=== PATIENT | female | born 1945 | race Caucasian/White ===

== ENCOUNTER 2018-12-28 07:12 | Emergency (ER) | payer MEDICARE ==
[~2018-12-28] VITALS: Ht 170.2 cm; Wt 80.0 kg
[2018-12-28] MEDS ORDERED: normal saline 1000ML IV soln IVB ONE (07:15)
[2018-12-28 07:52] LABS: BASOPHILS # (AUTO) 0.1 X10'3 (0-0.2); BASOPHILS % (AUTO) 0.5 % (0-1); EOSINOPHILS % (AUTO) 0.2 % (0-6); HEMATOCRIT 38.4 % (35.0-45.0); HEMOGLOBIN 12.8 g/dl (12.0-16.0); LYMPHOCYTES # (AUTO) 0.6 X10'3 (1.1-4.8); LYMPHOCYTES % (AUTO) 4.9 % (21-51); MEAN CORPUSCULAR HEMOGLOBIN 27.7 PG (27.0-31.0); MEAN CORPUSCULAR HGB CONC 33.4 g/dL (33.0-36.5); MEAN CORPUSCULAR VOLUME 82.8 FL (78-98); MEAN PLATELET VOLUME 8.7 FL (7.4-10.4); MONOCYTES # (AUTO) 0.5 X10'3 (0-0.9); MONOCYTES % (AUTO) 4.4 % (2-12); NEUTROPHILS # (AUTO) 10.5 X10'3 (1.8-7.7); PLATELET COUNT 199 X10'3 (140-440); RED BLOOD COUNT 4.64 X10'6 (4.20-5.60); RED CELL DISTRIBUTION WIDTH 13.7 % (11.5-14.5); WHITE BLOOD COUNT 11.6 X10'3 (4.5-11.0)
[2018-12-28 08:05] LABS: PARTIAL THROMBOPLASTIN TIME 27 SECONDS (22-32)
[2018-12-28 08:07] LABS: ALANINE AMINOTRANSFERASE 19 U/L (12-78); ALBUMIN 3.8 G/DL (3.4-5.0); ALBUMIN/GLOBULIN RATIO 0.9 (1.1-1.5); ALKALINE PHOSPHATASE 94 IU/L (46-116); ANION GAP 11 (8-16); ASPARTATE AMINO TRANSFERASE 21 U/L (10-37); BILIRUBIN,TOTAL 0.7 MG/DL (0.1-1.0); BLOOD UREA NITROGEN 34 MG/DL (7-18); CALCIUM 9.9 MG/DL (8.5-10.1); CHLORIDE 104 MMOL/L (99-107); CREATINE KINASE 253 U/L (26-192); CREATININE 1.48 MG/DL (0.40-0.90); ETHANOL < 0.010 GM/DL (0.0-0.010); GLUCOSE 213 MG/DL (70-104); POTASSIUM 4.2 MMOL/L (3.5-5.1); SODIUM 136 MMOL/L (135-145); TOTAL CARBON DIOXIDE 21.4 MMOL/L (24-32); TOTAL PROTEIN 8.1 G/DL (6.4-8.2); eGFR 35 ML/MIN
[2018-12-28] MEDS ORDERED: normal saline 1000ml 1,000 ML IV ONE (08:25)
--- NOTE | 2018-12-28 08:50 | NUR ---
PT TAKEN TO CT
[2018-12-28 08:55] LABS: CLARITY,URINE CLOUDY (Clear); COLOR,URINE YELLOW (Yellow); GLUCOSE, URINE NEGATIVE (Neg); KETONES,URINE NEGATIVE (Neg); LEUKOCYTE ESTERASE ,URINE NEGATIVE (Neg); NITRITES, URINE NEGATIVE (Neg); OCCULT BLOOD,URINE SMALL (Neg); PROTEIN,URINE TRACE mg/dl (Neg); UROBILINOGEN,URINE 0.2 E.U/dL (0.2-1.0)
[2018-12-28 08:57] LABS: UA COLLECTION TYPE CLN CATCH MIDSTREAM
[2018-12-28 09:01] LABS: HYALINE CASTS >30 /LPF (NEGATIVE); SQUAMOUS EPITHELIAL CELL,UR MODERATE /LPF (FEW)
[2018-12-28 09:03] LABS: WBC CLUMPS,URINE FEW /HPF (NEGATIVE)
[2018-12-28 09:04] LABS: BACTERIA,URINE 2+ /HPF (Neg); MUCUS STRANDS FEW /LPF (Neg); RBC,URINE 0-2 /HPF (0-2); TRANSITIONAL EPI CELLS,URINE FEW /HPF
[2018-12-28] MEDS ORDERED: CefTRIAXone 2gm/D5W 50ml 50 ML IV ONE (09:15)
[2018-12-28 10:09] VITALS: BP 130/55
[2018-12-28] MEDS ORDERED: CIPR-230 PO (11:09)
== END 2018-12-28 11:15 | disposition home or self-care (01) ==
LOC: ER 07:14
DX: E86.0 Dehydration (principal); N39.0 Urinary tract infection, site not specified; F03.90 Unspecified dementia, unspecified severity, without behavioral disturbance, psychotic disturbance, mood disturbance, and anxiety; Z88.0 Allergy status to penicillin; Z79.2 Long term (current) use of antibiotics; Z98.890 Other specified postprocedural states; W18.39XA Other fall on same level, initial encounter; Y93.89 Activity, other specified; Y92.89 Other specified places as the place of occurrence of the external cause; Y99.8 Other external cause status
CPT/HCPCS: 36415; 70450; 71045; 72125; 80053; 80320; 81001; 82140; 82550; 82948; 83880; 85025; 85610; 85730; 87088; 93005; 96361; 96365; 99284; J0696; J7030

== ENCOUNTER 2019-05-08 09:28 | Inpatient (IN) | payer MEDICARE, OTHER ==
[~2019-05-08] VITALS: Ht 167.6 cm; Wt 62.0 kg
[2019-05-08] MEDS ORDERED: pantoprazole 40 MG vial IV ONE (10:10)
[2019-05-08] MEDS ORDERED: normal saline 1000ML IV soln IVB ONE ×2 (10:10)
[2019-05-08] MEDS ORDERED: ondansetron/PF 4mg/2ml inj IV ONE (10:10)
[2019-05-08 10:32] LABS: BASOPHILS % (AUTO) 0.3 % (0-1); EOSINOPHILS % (AUTO) 0.1 % (0-6); HEMATOCRIT 40.9 % (35.0-45.0); HEMOGLOBIN 14.6 g/dl (12.0-16.0); LYMPHOCYTES # (AUTO) 0.7 X10'3 (1.1-4.8); LYMPHOCYTES % (AUTO) 7.4 % (21-51); MEAN CORPUSCULAR HGB CONC 35.7 g/dL (33.0-36.5); MEAN CORPUSCULAR VOLUME 81.1 FL (78-98); MEAN PLATELET VOLUME 8.9 FL (7.4-10.4); MONOCYTES # (AUTO) 0.6 X10'3 (0-0.9); MONOCYTES % (AUTO) 5.8 % (2-12); NEUTROPHILS # (AUTO) 8.6 X10'3 (1.8-7.7); NEUTROPHILS % (AUTO) 86.4 % (42-75); PLATELET COUNT 255 X10'3 (140-440); RED BLOOD COUNT 5.04 X10'6 (4.20-5.60); RED CELL DISTRIBUTION WIDTH 13.5 % (11.5-14.5); WHITE BLOOD COUNT 9.9 X10'3 (4.5-11.0)
[2019-05-08 10:46] LABS: ALANINE AMINOTRANSFERASE 25 U/L (12-78); ALBUMIN 4.4 G/DL (3.4-5.0); ALBUMIN/GLOBULIN RATIO 0.8 (1.1-1.5); ALKALINE PHOSPHATASE 97 IU/L (46-116); ANION GAP 18 (8-16); ASPARTATE AMINO TRANSFERASE 22 U/L (10-37); BILIRUBIN,TOTAL 0.6 MG/DL (0.1-1.0); BLOOD UREA NITROGEN 94 MG/DL (7-18); BUN/CREATININE RATIO 19.7 (6.6-38.0); CALCIUM 9.5 MG/DL (8.5-10.1); CHLORIDE 87 MMOL/L (99-107); CREATININE 4.76 MG/DL (0.40-0.90); GLUCOSE 346 MG/DL (70-104); POTASSIUM 4.7 MMOL/L (3.5-5.1); SODIUM 122 MMOL/L (135-145); TOTAL CARBON DIOXIDE 17.3 MMOL/L (24-32); TOTAL PROTEIN 9.6 G/DL (6.4-8.2); eGFR 9 ML/MIN
[2019-05-08 10:53] LABS: LIPASE 5176 U/L (73-393)
[2019-05-08 12:02] LABS: CLARITY,URINE CLOUDY (Clear); COLOR,URINE STRAW (Yellow); GLUCOSE, URINE NEGATIVE (Neg); KETONES,URINE NEGATIVE (Neg); LEUKOCYTE ESTERASE ,URINE NEGATIVE (Neg); NITRITES, URINE NEGATIVE (Neg); OCCULT BLOOD,URINE MODERATE (Neg); PROTEIN,URINE TRACE mg/dl (Neg); UROBILINOGEN,URINE 0.2 E.U/dL (0.2-1.0)
[2019-05-08 12:04] LABS: UA COLLECTION TYPE CLN CATCH MIDSTREAM
[2019-05-08 12:08] LABS: HYALINE CASTS >30 /LPF (NEGATIVE)
[2019-05-08 12:09] LABS: COARSE GRANULAR CAST 0-3 /LPF (NEGATIVE)
[2019-05-08 12:11] LABS: MUCUS STRANDS FEW /LPF (Neg); SQUAMOUS EPITHELIAL CELL,UR MANY /LPF (FEW); TRANSITIONAL EPI CELLS,URINE FEW /HPF
[2019-05-08 12:12] LABS: RBC,URINE 0-2 /HPF (0-2); WBC,URINE 0-4 /HPF (0-4)
[2019-05-08 12:13] LABS: AMORPHOUS URATES 2+; BACTERIA,URINE 2+ /HPF (Neg); CAL OXALATE CRYSTALS 1+ /HPF (NEGATIVE); RENAL CELLS, URINE FEW /HPF
[2019-05-08] MEDS ORDERED: mag hydrox/Alum hydrox/simeth 30ml oral suspension PO PRN (12:25)
[2019-05-08] MEDS ORDERED: magnesium hydroxide 30ml (MOM) UD suspension PO PRN (12:25)
[2019-05-08] MEDS ORDERED: bisacodyl 10mg suppository rectal RC PRN (12:25)
[2019-05-08] MEDS ORDERED: morphine 2 MG/ML inj. syringe IV PRN ×2 (12:25)
[2019-05-08] MEDS ORDERED: HYDROcodone/acetaminophen 5mg/325mg tablet PO PRN (12:25)
[2019-05-08] MEDS ORDERED: ondansetron/PF 4mg/2ml inj IV PRN (12:25)
[2019-05-08] MEDS ORDERED: dextrose 5%-normal saline 1,000 ML IV SCH (12:25)
[2019-05-08] MEDS ORDERED: metoclopramide 5 mg/ml inj IV PRN (12:25)
[2019-05-08] MEDS ORDERED: diphenhydrAMINE 25mg capsule PO PRN (12:25)
[2019-05-08] MEDS ORDERED: potassium Cl 20 mEq SR tablet PO PRN (12:25)
[2019-05-08] MEDS ORDERED: diphenhydrAMINE 50 mg/ml inj IV PRN (12:25)
[2019-05-08] MEDS ORDERED: HYDROcodone/acetaminophen 10/325mg tab PO PRN (12:25)
[2019-05-08] MEDS ORDERED: acetaminophen 650mg rectal suppository RC PRN (12:25)
[2019-05-08] MEDS ORDERED: potassium CL 10mEq/100ml bag 100 ML IV PRN ×2 (12:25)
[2019-05-08] MEDS ORDERED: magnesium 2GM in 50ml NS 50 ML IV PRN (12:25)
[2019-05-08] MEDS ORDERED: acetaminophen 325mg tablet PO PRN ×2 (12:25)
[2019-05-08] MEDS ORDERED: magnesium Cl slow-release 64mg tablet PO PRN (12:25)
[2019-05-08] MEDS ORDERED: magnesium 4gm in 100ml NS 100 ML IV PRN (12:25)
[2019-05-08 12:44] LABS: HEMOGLOBIN A1C 7.7 % (4.5-6.2)
[2019-05-08] MEDS ORDERED: ASPI-611 PO (12:51)
[2019-05-08] MEDS ORDERED: normal saline 1000ml 1,000 ML IV SCH (14:30)
[2019-05-08] MEDS ORDERED: sodium bicarbonate (8.4%) inj. 75 MEQ in dextrose 5% water 500ml 500 ML IV SCH (15:00)
--- NOTE | 2019-05-08 15:40 | NUR ---
Report received from ED RNAlesha.
[2019-05-08 16:00] VITALS: BP 137/62
--- NOTE | 2019-05-08 16:00 | NUR ---
Pt arrived to room 340B from ED
[2019-05-08] MEDS: sodium bicarbonate (8.4%) inj. 75 MEQ in dextrose 5% water 500ml 500 ML IV SCH ×3 (16:33→22:04)
--- NOTE | 2019-05-08 18:30 | NUR ---
Problems reprioritized. Patient report given, questions answered & plan of care reviewed with Lilly Carr RN.
--- NOTE | 2019-05-08 18:35 | NUR ---
Patient in room [facility] 340. I have received report from EMIL REAVES and had the opportunity to ask questions and assume patient care.
[2019-05-08] MEDS: heparin, porcine 5000 units/ml vial SQ SCH (19:49)
[2019-05-08 20:00] VITALS: BP 143/68
[2019-05-08] MEDS: K and/or MAG REPLACEMENT MC SCH (20:00)
[2019-05-08] MEDS ORDERED: MESSAGE TO PHARMACY PO ONE (20:20)
[2019-05-08] MEDS ORDERED: dextrose 50%-water 50ml dispensing syringe IV PRN ×2 (20:20)
[2019-05-08] MEDS ORDERED: glucagon, human recombinant 1mg kit SUBCUT PRN (20:20)
[2019-05-08] MEDS ORDERED: dextrose ORAL solution 15 GM/59 ML bottle PO PRN ×2 (20:20)
[2019-05-08] MEDS: insulin Lispro (HumaLOG) vial - multi-dose SQ SCH (22:12)
[2019-05-08] MEDS: insulin glargine (Lantus) pen - multi-dose SQ SCH (22:13)
[2019-05-09] VITALS: BP 129/66
[2019-05-09] MEDS: insulin Lispro (HumaLOG) vial - multi-dose SQ SCH ×3 (03:43→13:44)
[2019-05-09 04:49] LABS: BASOPHILS % (AUTO) 0.2 % (0-1); EOSINOPHILS % (AUTO) 0.3 % (0-6); HEMATOCRIT 34.5 % (35.0-45.0); HEMOGLOBIN 12.1 g/dl (12.0-16.0); LYMPHOCYTES # (AUTO) 1.2 X10'3 (1.1-4.8); LYMPHOCYTES % (AUTO) 15.9 % (21-51); MEAN CORPUSCULAR HEMOGLOBIN 28.2 PG (27.0-31.0); MEAN CORPUSCULAR HGB CONC 35.1 g/dL (33.0-36.5); MEAN CORPUSCULAR VOLUME 80.5 FL (78-98); MONOCYTES # (AUTO) 0.7 X10'3 (0-0.9); MONOCYTES % (AUTO) 9.6 % (2-12); NEUTROPHILS # (AUTO) 5.6 X10'3 (1.8-7.7); PLATELET COUNT 210 X10'3 (140-440); RED BLOOD COUNT 4.29 X10'6 (4.20-5.60); RED CELL DISTRIBUTION WIDTH 13.5 % (11.5-14.5); WHITE BLOOD COUNT 7.5 X10'3 (4.5-11.0)
[2019-05-09] MEDS: sodium bicarbonate (8.4%) inj. 75 MEQ in dextrose 5% water 500ml 500 ML IV SCH ×2 (04:54→09:57)
[2019-05-09 04:55] LABS: ALANINE AMINOTRANSFERASE 11 U/L (12-78); ALBUMIN 3.5 G/DL (3.4-5.0); ALBUMIN/GLOBULIN RATIO 0.9 (1.1-1.5); ALKALINE PHOSPHATASE 71 IU/L (46-116); ANION GAP 12 (8-16); ASPARTATE AMINO TRANSFERASE 18 U/L (10-37); BILIRUBIN,TOTAL 0.7 MG/DL (0.1-1.0); BLOOD UREA NITROGEN 85 MG/DL (7-18); BUN/CREATININE RATIO 26.3 (6.6-38.0); CALCIUM 8.8 MG/DL (8.5-10.1); CHLORIDE 95 MMOL/L (99-107); CHOL/HDL RATIO 3.9 (0.00-4.99); CHOLESTEROL 114 MG/DL (0-200); CREATININE 3.23 MG/DL (0.40-0.90); GLUCOSE 236 MG/DL (70-104); HDL CHOLESTEROL 29 MG/DL (35-60); LDL CHOLESTEROL 73 MG/DL (50-100); PHOSPHORUS 5.1 MG/DL (2.3-4.5); POTASSIUM 3.2 MMOL/L (3.5-5.1); SODIUM 131 MMOL/L (135-145); TOTAL CARBON DIOXIDE 24.4 MMOL/L (24-32); TOTAL PROTEIN 7.4 G/DL (6.4-8.2); TRIGLYCERIDES 106 MG/DL (20-135); TROPONIN I 0.05 NG/ML (0.0-0.05); eGFR 14 ML/MIN
[2019-05-09 05:15] LABS: LIPASE 6040 U/L (73-393)
--- NOTE | 2019-05-09 06:05 | NUR ---
Patient in room [facility]. I have received report from Lilly Carr RN and had the opportunity to ask questions and assume patient care.
[2019-05-09 06:30] VITALS: BP 132/58
--- NOTE | 2019-05-09 06:30 | NUR ---
Problems reprioritized. Patient report given, questions answered & plan of care reviewed with EMIL RN.
[2019-05-09] MEDS: K and/or MAG REPLACEMENT MC SCH ×2 (06:39→19:25)
[2019-05-09] MEDS: heparin, porcine 5000 units/ml vial SQ SCH ×2 (07:23→19:56)
[2019-05-09] MEDS: pantoprazole 40 MG vial IV SCH (07:23)
[2019-05-09] MEDS: aspirin 81mg tablet.DR PO SCH (07:24)
[2019-05-09] MEDS: potassium Cl 20 mEq SR tablet PO PRN ×3 (07:24→16:48)
--- NOTE | 2019-05-09 10:58 | NUR ---
Student Medication Administration: For this medication-pass time frame, all medication were reviewed, dispensed, administered and documented per hospital policy by jayashree Landeros.
--- NOTE | 2019-05-09 10:58 | NUR ---
Student documentation: I have reviewed and agree with all interventions, assessments performed and documented by Leti, nursing admin.
[2019-05-09 11:00] VITALS: BP 123/60
[2019-05-09] MEDS: normal saline 1000ml 1,000 ML IV SCH ×2 (12:19→21:00)
--- NOTE | 2019-05-09 12:48 | NUR ---
Patient in room [facility] 340. I have received report from Rupa REAVES and had the opportunity to ask questions and assume patient care.
--- NOTE | 2019-05-09 18:17 | NUR ---
DM consult: Pt admitted with severe pancreatitis with abdominal pain with vomiting over the past 4 days. Pt has very poor PO intake for 2-3 days CYANIDE [employer] per MD and pt currently NPO. Pt lipase continues to be trend upward, currently documented at 6040. RD visited pt and daughter at bedside and pt states abdominal pain has dissipated and her appetite increased. 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 Pt declined verbal DM review. Pt is requesting food and states is hungry however pt is still NPO. LBM 05/09 with 200ml colostomy output. Will monitor for diet advancement. Recommendation: 1. diet advancement as medically indicated to carb controlled, low fat diet 2. bowel care as needed 3. weight per rx Addendum: 05/09/19 at 1818 by Wing Evelyn NELSON Amended: Links added. Addendum: 05/09/19 at [address] LESLIE Avendano
--- NOTE | 2019-05-09 18:35 | NUR ---
Received report from JEAN PAUL Goode. Patient in room [facility] 340B, and had the opportunity to ask questions and assume patient care.
--- NOTE | 2019-05-09 18:40 | NUR ---
Problems reprioritized. Patient report given, questions answered & plan of care reviewed with JEAN PAUL Estrada.
[2019-05-09] MEDS: insulin glargine (Lantus) pen - multi-dose SQ SCH (19:55)
[2019-05-09 20:00] VITALS: BP 115/41
[2019-05-10] VITALS: BP 115/51
[2019-05-10] MEDS: normal saline 1000ml 1,000 ML IV SCH ×3 (01:16→21:24)
[2019-05-10 04:34] LABS: BASOPHILS % (AUTO) 0.7 % (0-1); EOSINOPHILS % (AUTO) 0.7 % (0-6); HEMATOCRIT 30.2 % (35.0-45.0); HEMOGLOBIN 10.7 g/dl (12.0-16.0); LYMPHOCYTES # (AUTO) 1.2 X10'3 (1.1-4.8); LYMPHOCYTES % (AUTO) 24.4 % (21-51); MEAN CORPUSCULAR HEMOGLOBIN 28.9 PG (27.0-31.0); MEAN CORPUSCULAR HGB CONC 35.6 g/dL (33.0-36.5); MEAN CORPUSCULAR VOLUME 81.3 FL (78-98); MEAN PLATELET VOLUME 8.7 FL (7.4-10.4); MONOCYTES # (AUTO) 0.4 X10'3 (0-0.9); MONOCYTES % (AUTO) 8.9 % (2-12); NEUTROPHILS # (AUTO) 3.2 X10'3 (1.8-7.7); NEUTROPHILS % (AUTO) 65.3 % (42-75); PLATELET COUNT 165 X10'3 (140-440); RED BLOOD COUNT 3.71 X10'6 (4.20-5.60); RED CELL DISTRIBUTION WIDTH 13.4 % (11.5-14.5); WHITE BLOOD COUNT 4.9 X10'3 (4.5-11.0)
[2019-05-10 05:11] LABS: ALANINE AMINOTRANSFERASE 16 U/L (12-78); ALBUMIN 3.1 G/DL (3.4-5.0); ALBUMIN/GLOBULIN RATIO 0.9 (1.1-1.5); ALKALINE PHOSPHATASE 61 IU/L (46-116); ANION GAP 9 (8-16); ASPARTATE AMINO TRANSFERASE 19 U/L (10-37); BILIRUBIN,TOTAL 0.5 MG/DL (0.1-1.0); BLOOD UREA NITROGEN 61 MG/DL (7-18); BUN/CREATININE RATIO 26.9 (6.6-38.0); CALCIUM 8.6 MG/DL (8.5-10.1); CHLORIDE 103 MMOL/L (99-107); CREATININE 2.27 MG/DL (0.40-0.90); GLUCOSE 136 MG/DL (70-104); LIPASE 2121 U/L (73-393); PHOSPHORUS 3.4 MG/DL (2.3-4.5); POTASSIUM 3.6 MMOL/L (3.5-5.1); SODIUM 138 MMOL/L (135-145); TOTAL CARBON DIOXIDE 26.3 MMOL/L (24-32); TOTAL PROTEIN 6.7 G/DL (6.4-8.2); eGFR 21 ML/MIN
--- NOTE | 2019-05-10 06:10 | NUR ---
Problems reprioritized. Patient report given, questions answered & plan of care reviewed with JEAN PAUL Stover.
[2019-05-10 07:20] VITALS: BP 125/46
[2019-05-10] MEDS: K and/or MAG REPLACEMENT MC SCH ×2 (08:00→19:41)
[2019-05-10] MEDS: pantoprazole 40 MG vial IV SCH (08:46)
[2019-05-10] MEDS: aspirin 81mg tablet.DR PO SCH (08:46)
[2019-05-10] MEDS: heparin, porcine 5000 units/ml vial SQ SCH ×2 (08:47→19:40)
--- NOTE | 2019-05-10 11:57 | NUR ---
MD Giordano made aware of yeasty red rash in navel. Nystatin powder BID ordered for affected area. MD aware of slightly elevated troponins. No new orders. States that he will most likely be obtaining a surgical consult with on-call surgeon - Alix for gallbladder removal r/t gallstones.
[2019-05-10 12:00] VITALS: BP 120/42
[2019-05-10] MEDS ORDERED: nystatin 15 GM powder TP ONE (12:30)
--- NOTE | 2019-05-10 18:19 | NUR ---
Problems reprioritized. Patient report given, questions answered & plan of care reviewed with Natalie REAVES.
[2019-05-10] MEDS: nystatin 15 GM powder TP SCH (19:41)
[2019-05-10 20:00] VITALS: BP 128/45
[2019-05-10] MEDS: insulin glargine (Lantus) pen - multi-dose SQ SCH (21:28)
[2019-05-11] VITALS (17 sets, daily range): BP systolic 118–173; BP diastolic 35–77
[2019-05-11 05:58] LABS: BASOPHILS % (AUTO) 0.5 % (0-1); EOSINOPHILS # (AUTO) 0.1 X10'3 (0-0.9); EOSINOPHILS % (AUTO) 2.1 % (0-6); HEMATOCRIT 28.6 % (35.0-45.0); HEMOGLOBIN 10.1 g/dl (12.0-16.0); LYMPHOCYTES # (AUTO) 1.1 X10'3 (1.1-4.8); LYMPHOCYTES % (AUTO) 25.4 % (21-51); MEAN CORPUSCULAR HEMOGLOBIN 28.6 PG (27.0-31.0); MEAN CORPUSCULAR HGB CONC 35.4 g/dL (33.0-36.5); MEAN PLATELET VOLUME 8.8 FL (7.4-10.4); MONOCYTES # (AUTO) 0.4 X10'3 (0-0.9); MONOCYTES % (AUTO) 9.3 % (2-12); NEUTROPHILS # (AUTO) 2.7 X10'3 (1.8-7.7); NEUTROPHILS % (AUTO) 62.7 % (42-75); PLATELET COUNT 153 X10'3 (140-440); RED BLOOD COUNT 3.54 X10'6 (4.20-5.60); RED CELL DISTRIBUTION WIDTH 13.7 % (11.5-14.5); WHITE BLOOD COUNT 4.3 X10'3 (4.5-11.0)
[2019-05-11 06:27] LABS: ALANINE AMINOTRANSFERASE 23 U/L (12-78); ALBUMIN 2.9 G/DL (3.4-5.0); ALBUMIN/GLOBULIN RATIO 0.9 (1.1-1.5); ALKALINE PHOSPHATASE 52 IU/L (46-116); ANION GAP 8 (8-16); ASPARTATE AMINO TRANSFERASE 24 U/L (10-37); BILIRUBIN,TOTAL 0.6 MG/DL (0.1-1.0); BLOOD UREA NITROGEN 43 MG/DL (7-18); BUN/CREATININE RATIO 25.4 (6.6-38.0); CALCIUM 8.3 MG/DL (8.5-10.1); CHLORIDE 108 MMOL/L (99-107); CREATININE 1.69 MG/DL (0.40-0.90); GLUCOSE 74 MG/DL (70-104); LIPASE 753 U/L (73-393); MAGNESIUM 1.8 MG/DL (1.5-2.4); PHOSPHORUS 2.6 MG/DL (2.3-4.5); POTASSIUM 3.5 MMOL/L (3.5-5.1); SODIUM 141 MMOL/L (135-145); TOTAL CARBON DIOXIDE 24.8 MMOL/L (24-32); TOTAL PROTEIN 6.2 G/DL (6.4-8.2); eGFR 30 ML/MIN
--- NOTE | 2019-05-11 06:33 | NUR ---
Problems reprioritized. Patient report given, questions answered & plan of care reviewed with JEAN PAUL Espino.
--- NOTE | 2019-05-11 06:34 | NUR ---
Patient in room [facility]. I have received report from JEAN PAUL Estrada and had the opportunity to ask questions and assume patient care.
[2019-05-11] MEDS: K and/or MAG REPLACEMENT MC SCH ×2 (06:57→20:00)
[2019-05-11] MEDS: heparin, porcine 5000 units/ml vial SQ SCH ×2 (07:03→19:59)
[2019-05-11] MEDS: pantoprazole 40 MG vial IV SCH (07:03)
[2019-05-11] MEDS: normal saline 1000ml 1,000 ML IV SCH (07:04)
[2019-05-11] MEDS: aspirin 81mg tablet.DR PO SCH (07:04)
[2019-05-11] MEDS: nystatin 15 GM powder TP SCH ×2 (07:04→19:58)
[2019-05-11] MEDS: dextrose 5%-normal saline 1,000 ML IV SCH (12:08)
[2019-05-11] MEDS ORDERED: ringers solution, lacted 1,000 ML IV SCH ×2 (13:19→16:14)
[2019-05-11] MEDS ORDERED: ringers solution, lacted 1,000 ML IV ONE (13:19)
[2019-05-11] MEDS ORDERED: fentaNYL/PF 50MCG/1 ML 2ML syringe IV PRN ×2 (13:20)
[2019-05-11] MEDS ORDERED: morphine 4 MG/ML inj SYRINge IV PRN ×4 (13:20→16:15)
[2019-05-11] MEDS ORDERED: ondansetron/PF 4mg/2ml inj IV PRN ×2 (13:20→16:15)
[2019-05-11] MEDS ORDERED: hydrALAZINE 20mg/ml inj. IV PRN (13:20)
[2019-05-11] MEDS ORDERED: labetalol 20mg/4ml (5mg/ml) syringe IV PRN (13:20)
[2019-05-11] MEDS: levoFLOXACIN-Levaquin 750MG/D5 150 ML IV SCH (13:47)
[2019-05-11] MEDS ORDERED: BUPIVAcaine/PF 2.5 mg/ml (0.25%) 30ml vial ONE (14:53)
[2019-05-11] MEDS ORDERED: ceFAZolin 1000mg inj ONE (14:53)
--- NOTE | 2019-05-11 15:25 | NUR ---
Patient to OR via bed with x2 staff. Report called to recovery. Patient in no apparent distress at this time.
[2019-05-11] MEDS ORDERED: sevoflurane 250ml liquid IH ONE (15:44)
[2019-05-11] MEDS ORDERED: ePHEDrine 50MG/ML INJ. ONE (15:44)
[2019-05-11] MEDS ORDERED: glycopyrrolate 0.2mg/ml inj ONE (15:44)
[2019-05-11] MEDS ORDERED: midazolam 2 mg/2 ml injection ONE (15:47)
[2019-05-11] MEDS ORDERED: fentaNYL /PF 50mcg/ml 5ml ampule ONE (15:48)
[2019-05-11] MEDS ORDERED: propofol inj 20 ML IV ONE (15:59)
[2019-05-11] MEDS ORDERED: rocuronium 10mg/ml inj IV ONE (15:59)
[2019-05-11] MEDS ORDERED: HYDROmorphone inj. 0.5 MG/0.5 ML DISP.SYRIN IV PRN ×2 (16:15)
[2019-05-11] MEDS ORDERED: meperidine/PF 25mg/ml syringe IV PRN (16:15)
[2019-05-11] MEDS ORDERED: sugammadex 200mg/2ml injection IV ONE (16:53)
--- NOTE | 2019-05-11 17:15 | NUR ---
Received from OR via SURGICAL BED , accompanied by Anesthesiologist DEMETRI and report given by Anesthesiolgist. PATIENT WITH EXISTING COLOSTOMY PRESENT AND IS CDI. 3 ABDOMIINAL BANDAIDS PRESENT. ALYSIA DRAIN TO RIGHT SIDE OF ABDOMEN- SEROSANGUENOUS DRAINAGE PRESENT. NOEMI. ALEJANDRO CHAVIRA FOR COMFORT. PATIENT WITH 10L MASK ON WITH 100% SATURATIONS. 20G PIV IN RIGHT UE RUNNING LR AT 100. Addendum: 05/11/19 at 1730 by Neville Dumas RN, RN Amended: Links added.
[2019-05-11] MEDS ORDERED: HYDROcodone/acetaminophen 10/325mg tab PO PRN (17:20)
--- NOTE | 2019-05-11 17:55 | NUR ---
ALL CRITERIA FOR TRANSFER TO THE FLOOR HAS BEEN ACHIEVED. VSS. BED LOW, CALL LIGHT AND VS. SET IN PLACE. RN PRESENT TO ACCEPT CARE. PATIENT RESTING COMFORTABLY IN BED. BELONGINGS SENT WITH PATIENT. DRESSINGS CDI. JEAN PAUL PLUNKETT PRESENT TO ACCEPT CARE. PATIENT CURRENTLY USING BEDPAN TO VOID. Addendum: 05/11/19 at 1805 by Neville Ramachandran - JEAN PAUL REAVES Amended: Links added.
--- NOTE | 2019-05-11 17:58 | NUR ---
Patient back to room 340 B from the OR. Patient drowsy but easy to arouse. Post op vitals started.
[2019-05-11] MEDS: metroNIDAZOLE-Flagyl 500mg/NS 100 ML IV SCH ×2 (18:32→23:36)
--- NOTE | 2019-05-11 18:35 | NUR ---
Problems reprioritized. Patient report given, questions answered & plan of care reviewed with JEAN PAUL Diallo.
[2019-05-11] MEDS: insulin glargine (Lantus) pen - multi-dose SQ SCH (21:00)
[2019-05-12] VITALS: BP 140/51
[2019-05-12] MEDS: dextrose 5%-normal saline 1,000 ML IV SCH ×2 (01:25→14:22)
[2019-05-12 05:04] LABS: BASOPHILS % (AUTO) 0.2 % (0-1); EOSINOPHILS % (AUTO) 0.6 % (0-6); HEMATOCRIT 30.9 % (35.0-45.0); HEMOGLOBIN 11.1 g/dl (12.0-16.0); LYMPHOCYTES # (AUTO) 0.4 X10'3 (1.1-4.8); LYMPHOCYTES % (AUTO) 4.6 % (21-51); MEAN CORPUSCULAR HEMOGLOBIN 29.1 PG (27.0-31.0); MEAN CORPUSCULAR HGB CONC 35.8 g/dL (33.0-36.5); MEAN CORPUSCULAR VOLUME 81.1 FL (78-98); MEAN PLATELET VOLUME 8.8 FL (7.4-10.4); MONOCYTES # (AUTO) 0.4 X10'3 (0-0.9); MONOCYTES % (AUTO) 4.7 % (2-12); NEUTROPHILS # (AUTO) 7.8 X10'3 (1.8-7.7); NEUTROPHILS % (AUTO) 89.9 % (42-75); PLATELET COUNT 167 X10'3 (140-440); RED BLOOD COUNT 3.81 X10'6 (4.20-5.60); RED CELL DISTRIBUTION WIDTH 13.3 % (11.5-14.5); WHITE BLOOD COUNT 8.7 X10'3 (4.5-11.0)
[2019-05-12 05:14] LABS: ALANINE AMINOTRANSFERASE 27 U/L (12-78); ALBUMIN 2.8 G/DL (3.4-5.0); ALBUMIN/GLOBULIN RATIO 0.8 (1.1-1.5); ALKALINE PHOSPHATASE 55 IU/L (46-116); ANION GAP 8 (8-16); ASPARTATE AMINO TRANSFERASE 30 U/L (10-37); BILIRUBIN,TOTAL 0.6 MG/DL (0.1-1.0); BLOOD UREA NITROGEN 26 MG/DL (7-18); BUN/CREATININE RATIO 18.7 (6.6-38.0); CALCIUM 8.1 MG/DL (8.5-10.1); CHLORIDE 108 MMOL/L (99-107); CREATININE 1.39 MG/DL (0.40-0.90); GLUCOSE 171 MG/DL (70-104); LIPASE 189 U/L (73-393); MAGNESIUM 1.3 MG/DL (1.5-2.4); PHOSPHORUS 2.3 MG/DL (2.3-4.5); POTASSIUM 3.8 MMOL/L (3.5-5.1); SODIUM 140 MMOL/L (135-145); TOTAL CARBON DIOXIDE 24.1 MMOL/L (24-32); TOTAL PROTEIN 6.1 G/DL (6.4-8.2); eGFR 37 ML/MIN
--- NOTE | 2019-05-12 06:10 | NUR ---
Patient in room [facility]. I have received report from Yoel REAVES and had the opportunity to ask questions and assume patient care.
--- NOTE | 2019-05-12 06:31 | NUR ---
Problems reprioritized. Patient report given, questions answered & plan of care reviewed with Gretchen REAVES.
[2019-05-12] MEDS ORDERED: potassium CL 10mEq/100ml bag 100 ML IV PRN ×2 (07:00)
[2019-05-12] MEDS ORDERED: magnesium 4gm in 100ml NS 100 ML IV PRN (07:00)
[2019-05-12] MEDS ORDERED: magnesium 2GM in 50ml NS 50 ML IV PRN (07:00)
[2019-05-12] MEDS ORDERED: potassium Cl 20 mEq SR tablet PO PRN (07:00)
[2019-05-12 07:30] VITALS: BP 155/42
[2019-05-12] MEDS: pantoprazole 40 MG vial IV SCH (07:55)
[2019-05-12] MEDS: nystatin 15 GM powder TP SCH ×2 (07:56→19:52)
[2019-05-12] MEDS: heparin, porcine 5000 units/ml vial SQ SCH ×2 (07:56→19:52)
[2019-05-12] MEDS: metroNIDAZOLE-Flagyl 500mg/NS 100 ML IV SCH ×2 (07:56→16:44)
[2019-05-12] MEDS: aspirin 81mg tablet.DR PO SCH (07:56)
[2019-05-12] MEDS: K and/or MAG REPLACEMENT MC SCH ×3 (07:59→20:00)
[2019-05-12] MEDS: magnesium Cl slow-release 64mg tablet PO PRN ×2 (08:00→19:53)
[2019-05-12 11:00] VITALS: BP 137/48
--- NOTE | 2019-05-12 11:33 | NUR ---
Reassessment: Pt s/p laparoscopic cholecystectomy d/t gallstone pancreatitis. Pt lipase down from 6040 to 189. Pt diet advanced to a clear liquid diet with no current documented PO intake. LBM 05/12 with 400ml colostomy output. Will continue to monitor. Recommendation: 1. diet advancement as medically indicated to carb controlled, low fat diet 2. Monitor need for ONS 3. bowel care as needed 4. weight per rx Addendum: 05/12/19 at 1134 by Wing Evelyn NELSON Amended: Links added. Addendum: 05/12/19 at 1134 by Wing Evelyn NELSON Reassessment: Pt s/p laparoscopic cholecystectomy d/t gallstone pancreatitis per MD. Pt lipase down from 6040 to 189 WNL. Pt diet advanced to a clear liquid with documented PO intake of 0% however pt observed to be eating breakfast during hourly rounding per RN notes. Pt may benefit from ONS if prolonged poor PO intake. LBM 05/11 with 400ml colostomy output. Will continue to monitor. Recommendation: 1. diet advancement as medically indicated to carb controlled, low fat diet 2. Monitor need for ONS 3. bowel care as needed 4. weight per rx Addendum: 05/12/19 at [address] I have reviewed and agree with note by [employer] Dipper. Josefa Carnes RD
[2019-05-12] MEDS ORDERED: ibuprofen 200mg tablet PO PRN (16:00)
[2019-05-12 18:00] VITALS: BP 138/44
--- NOTE | 2019-05-12 18:00 | NUR ---
Patient in room [facility]. I have received report from Gretchen REAVES and had the opportunity to ask questions and assume patient care.
--- NOTE | 2019-05-12 18:11 | NUR ---
Problems reprioritized. Patient report given, questions answered & plan of care reviewed with Yoel REAVES.
[2019-05-12] MEDS: lactobacillus rhamnosus 10,000 MMU CELLS/CAPSULE PO SCH (19:53)
[2019-05-12] MEDS: insulin glargine (Lantus) pen - multi-dose SQ SCH (21:40)
[2019-05-13] VITALS: BP 120/41
[2019-05-13] MEDS: metroNIDAZOLE-Flagyl 500mg/NS 100 ML IV SCH ×3 (00:18→16:06)
[2019-05-13 05:23] LABS: BASOPHILS % (AUTO) 0.3 % (0-1); EOSINOPHILS # (AUTO) 0.3 X10'3 (0-0.9); EOSINOPHILS % (AUTO) 5.1 % (0-6); HEMOGLOBIN 9.8 g/dl (12.0-16.0); LYMPHOCYTES # (AUTO) 0.7 X10'3 (1.1-4.8); LYMPHOCYTES % (AUTO) 11.9 % (21-51); MEAN CORPUSCULAR HEMOGLOBIN 28.9 PG (27.0-31.0); MEAN CORPUSCULAR HGB CONC 34.9 g/dL (33.0-36.5); MEAN CORPUSCULAR VOLUME 82.9 FL (78-98); MEAN PLATELET VOLUME 9.1 FL (7.4-10.4); MONOCYTES # (AUTO) 0.4 X10'3 (0-0.9); NEUTROPHILS # (AUTO) 4.5 X10'3 (1.8-7.7); NEUTROPHILS % (AUTO) 76.7 % (42-75); PLATELET COUNT 149 X10'3 (140-440); RED BLOOD COUNT 3.38 X10'6 (4.20-5.60); RED CELL DISTRIBUTION WIDTH 13.8 % (11.5-14.5); WHITE BLOOD COUNT 5.9 X10'3 (4.5-11.0)
[2019-05-13 05:38] LABS: ALANINE AMINOTRANSFERASE 19 U/L (12-78); ALBUMIN 2.4 G/DL (3.4-5.0); ALBUMIN/GLOBULIN RATIO 0.7 (1.1-1.5); ALKALINE PHOSPHATASE 50 IU/L (46-116); ANION GAP 8 (8-16); ASPARTATE AMINO TRANSFERASE 22 U/L (10-37); BILIRUBIN,TOTAL 0.5 MG/DL (0.1-1.0); BLOOD UREA NITROGEN 14 MG/DL (7-18); BUN/CREATININE RATIO 10.7 (6.6-38.0); CHLORIDE 108 MMOL/L (99-107); CREATININE 1.31 MG/DL (0.40-0.90); GLUCOSE 169 MG/DL (70-104); LIPASE 179 U/L (73-393); MAGNESIUM 1.4 MG/DL (1.5-2.4); PHOSPHORUS 1.5 MG/DL (2.3-4.5); POTASSIUM 3.1 MMOL/L (3.5-5.1); SODIUM 140 MMOL/L (135-145); TOTAL CARBON DIOXIDE 23.9 MMOL/L (24-32); TOTAL PROTEIN 5.7 G/DL (6.4-8.2); eGFR 40 ML/MIN
--- NOTE | 2019-05-13 06:30 | NUR ---
Patient in room [facility]. I have received report from Yoel REAVES and had the opportunity to ask questions and assume patient care.
--- NOTE | 2019-05-13 06:30 | NUR ---
Problems reprioritized. Patient report given, questions answered & plan of care reviewed with Nilesh RN.
[2019-05-13] MEDS: lactobacillus rhamnosus 10,000 MMU CELLS/CAPSULE PO SCH ×2 (07:40→20:09)
[2019-05-13] MEDS: aspirin 81mg tablet.DR PO SCH (07:41)
[2019-05-13] MEDS: magnesium Cl slow-release 64mg tablet PO PRN ×2 (07:44→20:09)
[2019-05-13] MEDS: potassium Cl 20 mEq SR tablet PO PRN ×3 (07:45→20:09)
[2019-05-13] MEDS: pantoprazole 40 MG vial IV SCH (07:48)
[2019-05-13] MEDS: nystatin 15 GM powder TP SCH ×2 (07:49→20:10)
[2019-05-13] MEDS: heparin, porcine 5000 units/ml vial SQ SCH ×2 (07:49→20:10)
[2019-05-13] MEDS: K and/or MAG REPLACEMENT MC SCH ×2 (07:50→20:00)
[2019-05-13 08:04] VITALS: BP 119/37
[2019-05-13] MEDS: insulin Lispro (HumaLOG) vial - multi-dose SQ SCH ×2 (08:49→13:11)
[2019-05-13] MEDS: levoFLOXACIN-Levaquin 750MG/D5 150 ML IV SCH (09:15)
[2019-05-13 11:00] VITALS: BP 134/57
--- NOTE | 2019-05-13 12:19 | NUR ---
Drain taken out at this time, 50 mL dumped at this time, serosanguineous drainage.
[2019-05-13] MEDS: dextrose 5%-normal saline 1,000 ML IV SCH (15:03)
[2019-05-13 18:00] VITALS: BP 132/46
[2019-05-13] MEDS ORDERED: METF500T20 PO (18:17)
[2019-05-13] MEDS ORDERED: SIMV20TA PO (18:17)
--- NOTE | 2019-05-13 18:21 | NUR ---
Problems reprioritized. Patient report given, questions answered & plan of care reviewed with Yoel REAVES.
[2019-05-13] MEDS: metFORMIN 500mg tablet PO SCH (18:24)
[2019-05-13] MEDS ORDERED: atorvastatin 10mg tablet PO SCH (21:00)
[2019-05-13] MEDS: insulin glargine (Lantus) pen - multi-dose SQ SCH (21:35)
[2019-05-14] VITALS: BP 127/38
[2019-05-14] MEDS: metroNIDAZOLE-Flagyl 500mg/NS 100 ML IV SCH ×2 (00:26→07:51)
[2019-05-14 06:25] LABS: BASOPHILS % (AUTO) 0.3 % (0-1); EOSINOPHILS # (AUTO) 0.3 X10'3 (0-0.9); EOSINOPHILS % (AUTO) 6.3 % (0-6); HEMATOCRIT 26.8 % (35.0-45.0); HEMOGLOBIN 9.4 g/dl (12.0-16.0); LYMPHOCYTES # (AUTO) 0.7 X10'3 (1.1-4.8); LYMPHOCYTES % (AUTO) 14.5 % (21-51); MEAN CORPUSCULAR HEMOGLOBIN 28.8 PG (27.0-31.0); MEAN CORPUSCULAR VOLUME 82.3 FL (78-98); MEAN PLATELET VOLUME 8.8 FL (7.4-10.4); MONOCYTES # (AUTO) 0.3 X10'3 (0-0.9); MONOCYTES % (AUTO) 7.1 % (2-12); NEUTROPHILS # (AUTO) 3.3 X10'3 (1.8-7.7); NEUTROPHILS % (AUTO) 71.8 % (42-75); PLATELET COUNT 147 X10'3 (140-440); RED BLOOD COUNT 3.25 X10'6 (4.20-5.60); RED CELL DISTRIBUTION WIDTH 13.4 % (11.5-14.5); WHITE BLOOD COUNT 4.6 X10'3 (4.5-11.0)
--- NOTE | 2019-05-14 06:32 | NUR ---
Patient in room [facility] 340. I have received report from MARCOS REAVES and had the opportunity to ask questions and assume patient care.
[2019-05-14 06:37] LABS: ALANINE AMINOTRANSFERASE 18 U/L (12-78); ALBUMIN 2.3 G/DL (3.4-5.0); ALBUMIN/GLOBULIN RATIO 0.7 (1.1-1.5); ALKALINE PHOSPHATASE 47 IU/L (46-116); ANION GAP 6 (8-16); ASPARTATE AMINO TRANSFERASE 13 U/L (10-37); BILIRUBIN,TOTAL 0.3 MG/DL (0.1-1.0); BLOOD UREA NITROGEN 9 MG/DL (7-18); BUN/CREATININE RATIO 6.7 (6.6-38.0); CALCIUM 8.1 MG/DL (8.5-10.1); CHLORIDE 111 MMOL/L (99-107); CREATININE 1.34 MG/DL (0.40-0.90); GLUCOSE 177 MG/DL (70-104); MAGNESIUM 1.2 MG/DL (1.5-2.4); PHOSPHORUS 1.6 MG/DL (2.3-4.5); SODIUM 142 MMOL/L (135-145); TOTAL PROTEIN 5.6 G/DL (6.4-8.2); eGFR 39 ML/MIN
[2019-05-14 07:22] VITALS: BP 127/53
[2019-05-14] MEDS: metFORMIN 500mg tablet PO SCH (07:30)
[2019-05-14] MEDS: dextrose 5%-normal saline 1,000 ML IV SCH (07:31)
[2019-05-14] MEDS: aspirin 81mg tablet.DR PO SCH (07:49)
[2019-05-14] MEDS: lactobacillus rhamnosus 10,000 MMU CELLS/CAPSULE PO SCH (07:49)
[2019-05-14] MEDS: nystatin 15 GM powder TP SCH (07:49)
[2019-05-14] MEDS: heparin, porcine 5000 units/ml vial SQ SCH (07:51)
[2019-05-14] MEDS: pantoprazole 40 MG vial IV SCH (07:52)
[2019-05-14] MEDS: K and/or MAG REPLACEMENT MC SCH (08:20)
[2019-05-14] MEDS: magnesium Cl slow-release 64mg tablet PO PRN (08:22)
[2019-05-14] MEDS: insulin Lispro (HumaLOG) vial - multi-dose SQ SCH (08:23)
[2019-05-14] MEDS ORDERED: METR-159 PO (10:27)
[2019-05-14] MEDS ORDERED: LACT1CAP26 PO (10:27)
[2019-05-14] MEDS ORDERED: LEVO500T89 PO (10:27)
[2019-05-14] MEDS ORDERED: PANT40TA4 PO (10:27)
[2019-05-14] MEDS ORDERED: SITA100T11 PO (10:27)
--- NOTE | 2019-05-14 15:40 | NUR ---
PATIENT DISCHARGED INTO THE CARE OF HER FAMILY. PATIENTS FAMILY WAS IN ROOM DURING DISCHARGE TEACHING AT THIS TIME. PATIENT IV WAS TAKEN OUT AND CANULA WAS INTACT AND SITE SHOWED MINIMAL BLEEDING, PATIENT EXPRESSED VERBAL UNDERSTANDING OF MEDICATION REGIME CHANGE PATIENT IS TO FOLLOW UP WITH IN ONE WEEKS TIME. PATIENTS MEDICATIONS SENT TO PHARMACY AND PATIENT LEFT HOME IN A PRIVATE VEHICLE AFTER BEING WHEELED DOWN TO THE LOBBY FROM ROOM.
== END 2019-05-14 12:43 | disposition home health service (06) | DRG 417 ==
LOC: ER 09:29 → ED HOLD 12:22 → SUR 3N 15:53
PROVIDERS: ADMIT Family Medicine; ATTEND Family Medicine
PROC: 0FT44ZZ Resection of Gallbladder, Percutaneous Endoscopic Approach (ICD-10-PCS; principal; 2019-05-11 15:44)
DX: K85.10 Biliary acute pancreatitis without necrosis or infection (principal); N17.0 Acute kidney failure with tubular necrosis; E87.1 Hypo-osmolality and hyponatremia; E87.2 Acidosis; K80.10 Calculus of gallbladder with chronic cholecystitis without obstruction; N18.3 Chronic kidney disease, stage 3 (moderate); E11.22 Type 2 diabetes mellitus with diabetic chronic kidney disease; E11.65 Type 2 diabetes mellitus with hyperglycemia; E86.0 Dehydration; E87.6 Hypokalemia; F03.90 Unspecified dementia, unspecified severity, without behavioral disturbance, psychotic disturbance, mood disturbance, and anxiety; I12.9 Hypertensive chronic kidney disease with stage 1 through stage 4 chronic kidney disease, or unspecified chronic kidney disease; Z80.3 Family history of malignant neoplasm of breast; Z82.0 Family history of epilepsy and other diseases of the nervous system; Z93.3 Colostomy status; Z85.038 Personal history of other malignant neoplasm of large intestine; Z90.710 Acquired absence of both cervix and uterus; Z93.2 Ileostomy status; Z83.6 Family history of other diseases of the respiratory system; Z88.0 Allergy status to penicillin; Z79.82 Long term (current) use of aspirin; Z79.899 Other long term (current) drug therapy
CPT/HCPCS: 36415; 71045; 74176; 74181; 76775; 80053; 80061; 81001; 82948; 83036; 83605; 83690; 83735; 84100; 84484; 85025; 85610; 87081; 88304; 93005; 96374; 96375; 97110; 97116; 97161; 97164; 97530; 99285; A4215; A4314; A4421; A4618; A6402; A7000; C9113; C9399; G0378; J0690; J1644; J1815; J1956; J2175; J2250; J2405; J2704; J3010; J3490; J7030; J7042; J7120